=== PATIENT | female | born 1990 | race Caucasian/White ===

== ENCOUNTER 2018-08-08 05:30 | Inpatient (IN) | payer OTHER ==
[2018-08-08] VITALS (40 sets, daily range): BP systolic 97–137; BP diastolic 37–76; PULSE 52–110; TEMP 97.3–98.1
[~2018-08-08] VITALS: Ht 167.6 cm; Wt 121.4 kg
[2018-08-08 06:19] LABS: BASO % 0.3 % (0.0-2.0); EOS % 0.6 % (0-4.0); GRAN # 4.2 (1.4-6.5); HEMATOCRIT 37.5 % (37.0-47.0); HEMOGLOBIN 11.9 g/dl (12.5-16.0); LYMPH # 1.7 (1.2-3.4); LYMPH % 26.6 % (20.0-51.0); MEAN CELL VOLUME 87 fl (80.0-100.0); MEAN CORPUSCULAR HEMOGLOBIN 28 pg (27.0-31.0); MEAN CORPUSCULAR HGB CONC 32 g/dl (33.0-37.0); MEAN PLATELET VOLUME 10.7 fl (7.4-10.4); MONO # 0.5 (0.1-0.6); MONO % 7.7 % (1.7-9.3); PLATELET COUNT 218 K/mm3 (130-400); RED BLOOD COUNT 4.31 M/mm3 (4.10-5.30); REDCELL DISTRIBUTION WIDTH-CV 18.8 % (11.5-14.5)
[2018-08-08] MEDS ORDERED: ZYRTEC 10MG10 MG PO (06:34)
[2018-08-08] MEDS ORDERED: ZOLOFT 100MG100 MG PO (06:34)
[2018-08-08] MEDS ORDERED: PRENATAL MVI (06:36)
[2018-08-08] MEDS ORDERED: SLOW FE142 MG PO (06:36)
--- NOTE | 2018-08-08 06:38 | NUR ---
Admission assessment completed. Pt denies vaginal bleeding and LOF. Reports GFM. Pt states contractions that have been painful. Bed locked in low position. Call light within reach. Updated on POC. No questions or concerns at this time.
[2018-08-08] MEDS ORDERED: PERCOCET 325 MG1 TA2 PO (07:19)
[2018-08-08] MEDS ORDERED: MOTRIN 800800 MG/TAB PO (07:19)
--- NOTE | 2018-08-08 10:20 | NUR ---
RN at bedside. Pt states, "feeling a gush." Pericare performed. Fundus firm at umbilicus. Moderate free flow noted. Pads changed. VSS. 1054-RN at bedside. Pt states, "feeling another gush." Large clots and free flow noted. VSS. Mild uterine atony noted. Fundus returns to firm with fundal massage. Dr. Zuñiga notifed. See physician notification. Pt assymptomatic. 1120-Pads weighed. Noted at 1126 grams. Pericare performed. Gown changed. 1130-Dr. Zuñiga at bedside. Performs SVE. Moderate amount of clots expressed by provider. Fundal massage performed. Orders to continue fundal massage q 15 minutes.
[2018-08-08 11:25] LABS: HEMATOCRIT 34.9 % (37.0-47.0); HEMOGLOBIN 11.2 g/dl (12.5-16.0)
[2018-08-08 15:36] LABS: HEMATOCRIT 34.5 % (37.0-47.0); HEMOGLOBIN 11.1 g/dl (12.5-16.0)
[2018-08-09 01:00] VITALS: BP 98/53; PULSE 86; TEMP 98.2
[2018-08-09 07:25] VITALS: BP 100/68; PULSE 77; TEMP 97.9
--- NOTE | 2018-08-09 10:24 | NUR ---
Initial visit; Mom thanked for offering congratulations for the of her son and for thanking her for choosing [facility].
--- NOTE | 2018-08-09 13:30 | NUR ---
Patient expressing that she has not been pleased with her stay/experience. Patient states "yesterday did not go as planned and now after all that happened, I am even more sore today and pain will not get under control, I dont like the way morphine makes me feel, I did not like the nurse telling me that I could not feed my baby a bottle when I asked for one, the water did not stay warm while showering, I just really want my pain to be better so I can function" This RN apologized for all of these things and asked how we could make things better for her. Patient states would just really like to make pain better. Dr. Bhat called and notified of patient pain and order for 7.5 percocet. 1425: Patient seems to be feeling better after converstions and in better spirits. Will continue to monitor.
[2018-08-09 19:00] VITALS: BP 107/70; PULSE 66; TEMP 97.8
[2018-08-10 08:24] VITALS: BP 102/70; PULSE 77; TEMP 97.5
[2018-08-10] MEDS ORDERED: MOTRIN 800800 MG/TAB PO (10:18)
[2018-08-10] MEDS ORDERED: PERCOCET 325 MG1 TA3 PO (10:18)
--- NOTE | 2018-08-10 10:40 | NUR ---
Discharge instructions given, pt verbalizes understanding. No further questions noted. Bands matched and cut and hugs tag removed.
== END 2018-08-10 12:40 | disposition home or self-care (01) | DRG 787 ==
LOC: OB 05:30
PROVIDERS: ADMIT Obstetrics & Gynecology
PROC: 10D00Z1 Extraction of Products of Conception, Low, Open Approach (ICD-10-PCS; principal; 2018-08-08)
DX: O34.211 Maternal care for low transverse scar from previous cesarean delivery (principal); O72.1 Other immediate postpartum hemorrhage; Z3A.39 39 weeks gestation of pregnancy; Z37.0 Single live birth; O99.344 Other mental disorders complicating childbirth; F32.9 Major depressive disorder, single episode, unspecified; K21.9 Gastro-esophageal reflux disease without esophagitis; O99.62 Diseases of the digestive system complicating childbirth; O99.214 Obesity complicating childbirth; O99.824 Streptococcus B carrier state complicating childbirth; O99.02 Anemia complicating childbirth
CPT/HCPCS: J0690; J1885; J2210; J2270; J2370; J2405; J2590; J3010; J7120

== ENCOUNTER 2018-08-14 12:51 | Emergency (ER) | payer OTHER ==
[~2018-08-14] VITALS: Ht 170.2 cm; Wt 119.9 kg
[~2018-08-14 12:51] MED LIST: MOTRIN 800800 MG/TAB PO; PERCOCET 325 MG1 TA2 PO; PERCOCET 325 MG1 TA3 PO; PRENATAL MVI; SLOW FE142 MG PO; ZOLOFT 100MG100 MG PO; ZYRTEC 10MG10 MG PO
[2018-08-14 13:04] VITALS: TEMP 97.9
[2018-08-14 15:12] VITALS: BP 121/85; PULSE 65
== END 2018-08-14 15:05 | disposition home or self-care (01) ==
LOC: COL.ER 12:51
DX: R22.41 Localized swelling, mass and lump, right lower limb (principal); Z87.891 Personal history of nicotine dependence